=== PATIENT | female | born 2005 | race Two or more races ===

== ENCOUNTER 2023-09-14 02:35 | Emergency (ER) | payer OTHER ==
[~2023-09-14] VITALS: Ht 152.4 cm; Wt 49.9 kg
== END 2023-09-14 05:55 | disposition home or self-care (01) ==
LOC: ER 02:35
DX: J03.90 Acute tonsillitis, unspecified (principal)

== ENCOUNTER 2024-11-05 03:18 | Emergency (ER) | payer OTHER ==
[~2024-11-05] VITALS: Ht 152.4 cm; Wt 54.4 kg
[2024-11-05 03:30] VITALS: BP 116/75; O2SAT 99
[2024-11-05] MEDS ORDERED: PROMETHAZINE HCL 50 MG/ML AMPUL IM STA (04:37)
[2024-11-05] MEDS ORDERED: FAMOTIDINE/PF 20 MG/2 ML VIAL IV PUSH STA (04:38)
[2024-11-05] MEDS ORDERED: 0.9 % SODIUM CHLORIDE 1,000 ML IV ONE (04:45)
[2024-11-05 05:12] LABS: HEMATOCRIT 37.1 % (36.0-45.00); HEMOGLOBIN 12.4 g/dL (12.0-15.00); MEAN CELL VOLUME 84.7 fL (80.00-100.00); MEAN CORPUSCULAR HEMOGLOBIN 28.4 pg (27.00-32.0); MEAN CORPUSCULAR HGB CONC 33.5 g/dl (32.0-36.0); PLATELET COUNT 285 K/uL (150-450); RED BLOOD COUNT 4.38 M/uL (4.00-6.00); RED CELL DISTRIBUTION WIDTH 14.8 % (11.5-14.5)
[2024-11-05 05:14] LABS: PH,URINE 6.5 (5.0-8.0); URINE APPEARANCE Clear; URINE BILIRRUBIN Negative (NEGATIVE); URINE BLOOD Negative; URINE COLOR Yellow; URINE GLUCOSE Negative (NEGATIVE); URINE LEUKOCYTE Negative; URINE NITRATE Negative
[2024-11-05 05:17] LABS: URINE BACTERIA 159.1 uL (0.0-1933); URINE CAST 1.76 uL (0.0-1.40); URINE EPITHELIAL CELLS 13.2 uL (0.0-38.8); URINE RBC 11.1 uL (0.0-20.8); URINE WBC 4.5 uL (0.0-23.2)
[2024-11-05 05:18] LABS: URINE KETONE 40 (NEGATIVE); URINE PROTEIN 100 (NEGATIVE)
[2024-11-05 05:30] LABS: ALKALINE PHOSPHATASE 77 U/L (50-136); ALT/SGPT 19 U/L (12-78); AMYLASE 79 U/L (25-115); ANION GAP 11 (10.0-20.0); AST/SGOT 27 U/L (15-37); BILIRUBIN TOTAL 0.81 mg/dL (0.3-1.2); BLOOD UREA NITROGEN 15 mg/dL (7-18); BUN CREA RATIO 22 (7.0-25.0); CALCIUM 9.1 mg/dL (8.5-10.1); CARBON DIOXIDE 25 mEq/L (21-32); CHLORIDE 110 mmol/L (98-107); CREATININE SERUM 0.67 mg/dL (0.55-1.02); GFR 111.11; GLOBULINA 3.8 G/DL (2.4-3.5); GLUCOSE FASTING 92 mg/dL (65-100); LIPASE 22 U/L (13-75); OSMOLALITY SERUM 284 MOSM/KG (275-295); SODIUM 142 mmol/L (136-145); TOTAL PROTEIN 7.8 gm/dL (6.4-8.2)
[2024-11-05 05:32] LABS: HCG QUANTITATIVE < 1 mUI/mL (1-3)
[2024-11-05] MEDS ORDERED: ZOFRAN8 MG PO (08:16)
[2024-11-05] MEDS ORDERED: PEPCID40 MG PO (08:16)
== END 2024-11-05 08:59 ==
LOC: ER 03:20
PROVIDERS: General Practice
DX: R11.10 Vomiting, unspecified (principal)